=== PATIENT | female | born 1970 | race Caucasian/White ===

== ENCOUNTER 2017-05-07 17:49 | Emergency (ER) | payer SELFPAY ==
[~2017-05-07] VITALS: Ht 172.7 cm; Wt 127.0 kg
--- NOTE | 2017-05-07 17:51 | NUR ---
PT BIB FROM THE STREETS TO ER BED 14. C/O GENERALIZED BODY PAIN. DENIES ANY TRAUMA. NAD NOTED. STABLE VITALS. AWAITING MD JOHNSON.
--- NOTE | 2017-05-07 18:10 | NUR ---
RODERICK JETER AT BEDSIDE FOR EVAL.
[2017-05-07] MEDS ORDERED: KETOROLAC TROMETHAMINE INJ 30 MG/ML VIAL IV ONE (18:30)
[2017-05-07] MEDS ORDERED: IV NS 0.9% 1,000 ML BAG IV ONE (18:30)
[2017-05-07] MEDS ORDERED: KETOROLAC TROMETHAMINE INJ 30 MG/ML VIAL ONE (18:34)
[2017-05-07 18:40] LABS: BASOPHILS % (AUTO) 0.4 % (0.0-2.0); EOSINOPHILS # (AUTO) 0.2 /CMM (0.0-0.7); HEMATOCRIT 37 % (33-45); HEMOGLOBIN 12.4 g/dL (11.5-14.8); LYMPHOCYTES # (AUTO) 1.3 /CMM (0.8-4.8); LYMPHOCYTES % (AUTO) 12.4 % (20.0-44.0); MEAN CORPUSCULAR HEMOGLOBIN 31 PG (26.0-33.0); MEAN CORPUSCULAR HGB CONC 34 g/dl (31.0-36.0); MEAN CORPUSCULAR VOLUME 91 fL (82-100); MONOCYTES # (AUTO) 0.7 /CMM (0.1-1.30); MONOCYTES % (AUTO) 6.7 % (2.0-12.0); NEUTROPHILS # (AUTO) 8.2 /CMM (1.8-8.9); NEUTROPHILS % (AUTO) 78.5 % (43.0-81.0); PLATELET COUNT (AUTO) 286 /CMM (150-450); RDW COEFFICIENT OF VARIATION 13.2 (11.5-15.0); RED BLOOD CELL COUNT(AUTO) 4.03 MIL/uL (4.0-5.2); WHITE BLOOD COUNT (AUTO) 10.4 K/uL (4.3-11.0)
[2017-05-07 18:49] LABS: CALCIUM, SERUM 9.2 mg/dL (8.5-10.1); CREATININE 0.7 mg/dL (0.6-1.3); POTASSIUM 3.7 mmol/L (3.5-5.1)
[2017-05-07 18:51] LABS: INR 0.9 (0.87-1.13); PROTHROMBIN TIME 9.4 SECS (9.5-12.7)
[2017-05-07 18:58] LABS: BILIRUBIN,DIRECT 0.1 mg/dL (0.0-0.2); BILIRUBIN,TOTAL 0.3 mg/dL (0.2-1.0); TOTAL PROTEIN, SERUM 7.2 g/dL (6.4-8.2)
--- NOTE | 2017-05-07 19:29 | NUR ---
PT REFUSING TO PROVIDE URINE SAMPLE. AGITATED. STATING " IM JUST GONNA LEAVE, I DONT HAVE TO GO AND PEE." RODERICK JETER AWARE.
--- NOTE | 2017-05-07 22:30 | NUR ---
[facility] D/C'D. NO BLEEDING NOTED.
--- NOTE | 2017-05-07 22:35 | NUR ---
PT IS AWAKE. AMBULATORY W/ STEADY GAIT. DISCHARGE IN STABLE CONDITION.
[2017-05-07 22:37] VITALS: BP 132/80
== END 2017-05-07 22:38 | disposition home or self-care (01) ==
LOC: ER 17:51
DX: M79.1 Myalgia (principal); M25.551 Pain in right hip; M25.552 Pain in left hip; H92.09 Otalgia, unspecified ear; F10.10 Alcohol abuse, uncomplicated; F17.200 Nicotine dependence, unspecified, uncomplicated; R79.1 Abnormal coagulation profile
CPT/HCPCS: 36415; 80048; 80076; 83690; 85025; 85730; 96361; 96374; 99284; A4606; J1885; J7030; Z7610